=== PATIENT | male | born 1970 | race Two or more races ===

== ENCOUNTER 2021-02-14 17:43 | Emergency (ER) | payer SELFPAY ==
[~2021-02-14] VITALS: Ht 172.7 cm; Wt 79.8 kg
--- NOTE | 2021-02-14 18:40 | PHYS DOC ---
Past Medical History Past Surgical History: No Surgical History (IVAN CHOE APRN) General Adult EDM: Chief Complaint: SKIN RASH/ABSCESS HPI: HPI: Patient is a 50 year old male who presents to the ED today with an abscess on the back of the right thigh, symptoms began 5 days ago. Patient denies any fever. Patient is Hebrew-speaking and interpretation is provided by the son (DAIJAIVAN Cesar APRN) Review of Systems: Review of Systems: Constitutional: Denies fever or chills. [] Musculoskeletal: Denies back pain or joint pain. [] Integument: Denies rash. [] Neurologic: Denies headache, focal weakness or sensory changes. [] Endocrine: Denies polyuria or polydipsia. [] Psychiatric: Denies depression or anxiety. [] (IVAN CHOE APRN) Heart Score: C/O Chest Pain: N/A Risk Factors: Risk Factors: DM, Current or recent (<one month) smoker, HTN, HLP, family history of CAD, obesity. Risk Scores: Score 0 - 3: 2.5% MACE over next 6 weeks - Discharge Home Score 4 - 6: 20.3% MACE over next 6 weeks - Admit for Clinical Observation Score 7 - 10: 72.7% MACE over next 6 weeks - Early Invasive Strategies (IVAN CHOE APRN) Current Medications: Current Medications Medications (Trade) Dose Ordered Sig/Gagan Start Time Stop Time Status Last Admin Dose Admin Ceftriaxone Sodium (Rocephin Im) 1 gm 1X ONCE 02/14/21 19:00 02/14/21 19:01 Diphtheria/ Tetanus/Acell Pertussis (ADACEL TDap SYRINGE) 0.5 ml ONCE ONCE 02/14/21 19:00 02/14/21 19:01 Lidocaine HCl (Xylocaine-Mpf 1% 2ml Vial) 2 ml 1X ONCE 02/14/21 19:00 02/14/21 19:01 Trimethoprim/ Sulfamethoxazole (Bactrim Ds) 1 tab 1X ONCE 02/14/21 19:00 02/14/21 19:01 (IVAN CHOE APRN) Allergies: Allergies: Allergies Coded Allergies Type Severity Reaction Last Updated Verified No Known Drug Allergies 02/14/21 No (IVAN CHOE APRN) Physical Exam: PE: Constitutional: Well developed, well nourished, no acute distress, non-toxic appearance. [] Skin: Dorsal aspect of lower right thigh with 2 indurated areas roughly 2 x 2 cm and 0.5 x 0.5 cm with surrounding moderate cellulitis. There is no knee involvement. The areas are draining yellow purulent bloody material which was expressed by me in the ED. The areas are warm and tender to touch. Back: No tenderness, no CVA tenderness. [] Extremities: No tenderness, no cyanosis, no clubbing, ROM intact, no edema. [] Neurologic: Alert and oriented X 3, normal motor function, normal sensory function, no focal deficits noted. [] Psychologic: Affect normal, judgement normal, mood normal. [] (IVAN CHOE APRN) Current Patient Data: Vital Signs: Vital Signs Date Time Temp Pulse Resp B/P (MAP) Pulse Ox O2 Delivery O2 Flow Rate FiO2 02/14/21 18:00 98.9 69 18 162/91 99 Room Air 98.9 (IVAN CHOE APRN) EKG: EKG: [] (IVAN CHOE APRN) Radiology/Procedures: Radiology/Procedures: [] (IVAN CHOE APRN) Course & Med Decision Making: Course & Med Decision Making Pertinent Labs and Imaging studies reviewed. (See chart for details) This is a 50-year-old male patient presenting to the ED today with abscess and cellulitis to the back of the right thigh that will open and draining on arrival to the ED. I went ahead and express the pus from the areas. Patient was started on Rocephin IM in the ED. Was also given Bactrim. Discharged with Bactrim and cephalexin. Wound care instructions and return precautions provided. Tetanus updated. (IVAN CHOE APRN) Dragon Disclaimer: Dragon Disclaimer: This electronic medical record was generated, in whole or in part, using a voice recognition dictation system. (IVAN CHOE APRN) Departure Departure Impression: Primary Impression: Abscess or cellulitis of thigh Disposition: 01 HOME / SELF CARE / HOMELESS Condition: STABLE Patient Instructions: Abscess, [id number], Cellulitis, [id number] Additional Instructions: You were seen for abscess and cellulitis on the back of your leg. We put you on antibiotics, ensure you complete them. Please apply warm compresses to the area twice a day for 10 days. Take Tylenol or Motrin for pain or fever. Follow-up with your primary care doctor in 1 to 2 weeks. Scripts Hydrocodone Bit/Acetaminophen (HYDROCODONE-APAP 5-325 ) 1 Tab Tablet 1 TAB PO PRN Q6HRS PRN for PAIN, #14 TAB 0 Refills Prov: IVAN CHOE APRN 02/14/21 Sulfamethoxazole/Trimethoprim (BACTRIM DS TABLET) 1 Each Tablet 1 TAB PO BID for 10 Days, #20 TAB 0 Refills Prov: IVAN CHOE APRN 02/14/21 Cephalexin (CEPHALEXIN) 500 Mg Tablet 1 TAB PO TID, #30 TAB Prov: IVAN CHOE APRN 02/14/21 Attending Signature Attending Signature I have reviewed the PA/TAMALE MAKER's note and plan of care. I was available for consultation as needed during the patient's visit in the emergency department. I agree with the clinical impression, plan, and disposition. (WOLF KIMBALL DO) IVAN CHOE APRN Feb 14, 2021 18:40 WOLF KIMBALL DO Feb 15, 2021 00:30
[2021-02-14] MEDS ORDERED: CEPH500T PO ×2 (18:50→20:39)
[2021-02-14] MEDS ORDERED: SULF1TAB24 PO ×2 (18:50→20:39)
[2021-02-14] MEDS ORDERED: HYDR-2761 PO ×2 (18:50→20:39)
[2021-02-14] MEDS ORDERED: LIDOCAINE 1% PF 2 ML VIAL. INJ ONE (19:00)
[2021-02-14] MEDS ORDERED: DIPH,PERTUSS(ACELL),TET VAC/PF 0.5 ML SYRINGE. VAX IM ONE (19:00)
[2021-02-14] MEDS ORDERED: cefTRIAXone IM 1 GM VIAL IM ONE (19:00)
[2021-02-14] MEDS ORDERED: SMZ/TMP 800/160MG TABLET. PO ONE (19:00)
[2021-02-14 19:30] VITALS: BP 163/91
== END 2021-02-14 20:40 | disposition home or self-care (01) ==
LOC: ER 17:43
DX: L02.415 Cutaneous abscess of right lower limb (principal)
CPT/HCPCS: 90471; 90715; 96372; 99285; J0696; J3490